=== PATIENT | male | born 1965 | race Caucasian/White ===

== ENCOUNTER 2016-09-10 00:12 | Emergency (ER) | payer OTHER ==
[~2016-09-10] VITALS: Ht 185.4 cm; Wt 98.6 kg
[2016-09-10 00:15] VITALS: Ht 185.4 cm; Wt 98.6 kg
[2016-09-10] MEDS ORDERED: ASPI81TA28 PO (00:44)
[2016-09-10] MEDS ORDERED: MULT-506 PO (00:44)
--- NOTE | 2016-09-10 01:05 | DIAGNOSTIC IMAGING REPORT ---
RIGHT SHOULDER 3 VIEWS CLINICAL HISTORY: Right shoulder pain. FINDINGS: 3 views of the right shoulder are obtained. No prior studies are available for comparison at the time of dictation. The skeletal structures are well mineralized. No fracture or dislocation is seen. The glenohumeral and acromioclavicular joints are preserved. Mild degenerative change is seen in the greater tuberosity of the humeral head. The overlying soft tissues are within normal limits. The imaged right upper lobe lung parenchyma appears clear. IMPRESSION: No acute bony abnormality is seen in the right shoulder. Electronically signed by: Shaq Lane M.D. 09/10/2016 1:03 AM Dictated Date/Time: 09/10/2016 1:02 AM
[2016-09-10] MEDS ORDERED: HYDR-5688 PO (01:37)
[2016-09-10] MEDS ORDERED: METH4PAK PO (01:38)
[2016-09-10] MEDS ORDERED: NORCO 5/325MG HOME PACK PO ONE (01:45)
[2016-09-10 02:24] VITALS: BP 138/78; PULSE 82; TEMP 36.6; O2SAT 96
--- NOTE | 2016-09-10 04:11 | EMERGENCY ROOM VISIT NOTE ---
ED Visit Note First contact with patient: 00:22 CHIEF COMPLAINT: Shoulder pain HISTORY OF PRESENT ILLNESS: This 51-year-old male patient presents to the emergency department complaining of pain in the right shoulder for the past 2-3 days. The patient does not recall a distinct injury or trauma, but states that he does lift things at work, and believes this is where he injured himself. There is no limitation of motion of the arm because of the pain. The pain is moderate, constant and increases with motion of the hand and arm. The patient states the pain is dull and 7/10. The patient has taken advil without relief of the pain. No previous significant previous shoulder disease or injury. No numbness or tingling. No neck and no back pain. No chest pain or shortness of breath. No abdominal pain or nausea/vomiting. No cough. REVIEW OF SYSTEMS: A 6 system review of systems was performed with positives and pertinent negatives in the HPI. ALLERGIES: No known allergies MEDICATIONS: See EMR PMH: See EMR SOCIAL HISTORY: Employed and lives with family PHYSICAL EXAM: Vital Signs: Reviewed nurse's notes, vital signs stable. GENERAL : White male, in no acute distress, but appears to be in pain, well-developed, well-nourished. MUSCULOSKELETAL: There is no deformity in the contour of the right supraspinatus shoulder and there are no alexandra deformities noted. There is no sulcus sign. There is tenderness over the Supraspinatus with strength 4/5. There is no clavicle tenderness. No tenderness of the humerus, elbow, wrist, or hand. [employer] Install[employer] strength 5/5. Radial pulse 2+. NECK: No tenderness to palpation over the cervical spine. HEART: Regular rate and rhythm without murmurs gallops or rubs. LUNGS: Clear to auscultation bilaterally without wheezes, rales or rhonchi. No accessory muscle use. No retractions. NEURO: The patient is alert and oriented to person, place, and time. Normal sensation to light and sharp touch. Capillary refill less than 2 seconds. RIGHT SHOULDER 3 VIEWS CLINICAL HISTORY: Right shoulder pain. FINDINGS: 3 views of the right shoulder are obtained. No prior studies are available for comparison at the time of dictation. The skeletal structures are well mineralized. No fracture or dislocation is seen. The glenohumeral and acromioclavicular joints are preserved. Mild degenerative change is seen in the greater tuberosity of the humeral head. The overlying soft tissues are within normal limits. The imaged right upper lobe lung parenchyma appears clear. IMPRESSION: No acute bony abnormality is seen in the right shoulder. EMERGENCY DEPARTMENT COURSE: Physical exam and history were performed. Nursing notes and EMR were reviewed. The patient appears to have some right shoulder pain for the past few days. X-rays were obtained and do not show evidence of acute fracture or dislocation. Clinically I suspect a sprain or strain. The patient believes his symptoms began to occur while at work, and he will be referred back to Workmen's Compensation. He is given additional discharge instructions as below and invited back to the emergency department with any new, worsening, or concerning symptoms. Current/Historical Medications Scheduled Aspirin (Aspirin Ec), 81 MG PO DAILY Methylprednisolone (Medrol Dosepak), 1 PKT PO DAILY Multivitamin (Multivitamin), 1 TAB PO DAILY Scheduled PRN Hydrocodone/Acetaminophen 5MG/325MG ([place] 5MG/325MG), 1 TABLET PO Q6 PRN for Pain Allergies Coded Allergies: No Known Allergies (Unverified , 09/10/16) Vital Signs Date Time Temp Pulse Resp B/P (MAP) Pulse Ox O2 Delivery O2 Flow Rate FiO2 09/10/16 02:24 36.6 82 18 138/78 96 09/10/16 02:23 82 18 138/78 96 Room Air 09/10/16 00:15 36.6 82 18 148/94 96 Room Air Medications Administered Medications (Trade) Dose Ordered Sig/Kwame Route Start Time Stop Time Status Last Admin Dose Admin Acetaminophen/ Hydrocodone Bitart ([place] 5/325mg Home Pack) 1 homepack UD ONCE PO 09/10/16 01:45 09/10/16 01:46 DC 09/10/16 02:02 1 HOMEPACK Departure Information Impression Primary Impression: Right shoulder pain Dispostion Home / Self-Care Condition GOOD Prescriptions Methylprednisolone (MEDROL DOSEPAK) 4 Mg Donald 1 PKT PO DAILY, #1 PKT Prov: Arvind Reddy PA-C 09/10/16 Hydrocodone/Acetaminophen 5MG/325MG ([place] 5MG/325MG) Tab 1 TABLET PO Q6 Y for Pain, #12 TAB For Initial Treatment Prov: Arvind Reddy PA-C 09/10/16 Forms HOME CARE DOCUMENTATION FORM, IMPORTANT VISIT INFORMATION Patient Instructions My [facility] Additional Instructions You were seen and evaluated today on an emergency basis only. This is not a substitute for, or an effort to provide, complete comprehensive medical care. It is not possible to recognize and treat all injuries or illnesses in a single emergency department visit. For this reason it is recommended that you followup with your Workmen's Compensation provider for ongoing care and evaluation. For baseline pain relief you may alternate ibuprofen and acetaminophen every 4 hours for pain control. Take 600 mg ibuprofen (Advil) and then 4 hours later take 1000 mg acetaminophen (Tylenol). Do not take more than 3000 mg acetaminophen in a single day. Take Medrol Dosepak as prescribed. [place] (hydrocodone/acetaminophen) 5/325 mg every 6 hours as needed for worsening breakthrough pain. Do not drink or drive on [place]. This medication will likely make you tired. Do not take [place] and Tylenol at the same time as both contain acetaminophen. [place] may cause constipation. You may wish to take an [id number] stool softener like Colace if this occurs. You are welcome to return to the emergency department anytime with new, worsening, or concerning symptoms.
== END 2016-09-10 02:25 | disposition home or self-care (01) ==
LOC: C.EDB 00:14 → C.EDA 02:25
DX: M25.511 Pain in right shoulder (principal); Z79.82 Long term (current) use of aspirin